=== PATIENT | female | born 1955 | race Caucasian/White ===

== ENCOUNTER 2016-05-14 23:32 | Emergency (ER) | payer OTHER ==
[~2016-05-14] VITALS: Ht 170.2 cm; Wt 82.6 kg
[2016-05-15] MEDS ORDERED: MORPHINE SULFATE 2 MG/1 ML DISP.SYRIN IV ONE (00:30)
[2016-05-15] MEDS ORDERED: ONDANSETRON 4 MG/2 ML VIAL IV ONE (00:30)
[2016-05-15 00:32] LABS: BASOPHILS # (AUTO) 0.1 K/uL (0.0-0.2); BASOPHILS % (AUTO) 0.8 % (0.0-2.0); EOSINOPHILS # (AUTO) 0.1 K/uL (0.0-0.7); EOSINOPHILS % (AUTO) 0.7 % (0.0-7.0); HEMATOCRIT 38.1 % (37.0-47.0); HEMOGLOBIN 11.8 g/dL (12.0-16.0); LYMPHOCYTES # (AUTO) 2.1 K/uL (0.8-4.8); LYMPHOCYTES % (AUTO) 22.4 % (20.5-51.5); MEAN CORPUSCULAR HEMOGLOBIN 27.1 uug (27.0-31.0); MEAN CORPUSCULAR HGB CONC 31 g/dL (32.0-37.0); MEAN CORPUSCULAR VOLUME 87.8 fL (81.0-99.0); MONOCYTES # (AUTO) 0.7 K/uL (0.1-1.30); MONOCYTES % (AUTO) 7.1 % (0.0-11.0); NEUTROPHILS # (AUTO) 6.6 K/uL (1.8-8.9); PLATELET COUNT (AUTO) 203 K/uL (150-450); RED BLOOD CELL COUNT(AUTO) 4.34 MIL/uL (4.20-5.40); RED CELL DISTRIBUTION WIDTH 12.6 % (11.5-14.5); WHITE BLOOD COUNT (AUTO) 9.6 K/uL (4.0-11.2)
[2016-05-15] MEDS ORDERED: ONDANSETRON 4 MG/2 ML VIAL ONE (00:35)
[2016-05-15] MEDS ORDERED: MORPHINE SULFATE 2 MG/1 ML DISP.SYRIN ONE (00:35)
[2016-05-15 00:52] LABS: ALBUMIN 3.9 g/dL (3.4-5.0); BILIRUBIN,DIRECT 0.1 mg/dL (0.0-0.2); BILIRUBIN,TOTAL 0.5 mg/dL (0.2-1.0); CALCIUM 9.3 mg/dL (8.5-10.1); CREATININE 0.9 mg/dL (0.6-1.3); TOTAL PROTEIN, SERUM 8.4 g/dL (6.4-8.2)
[2016-05-15 01:14] LABS: *BILIRUBIN,URIN NEGATIVE (NEGATIVE); *BLOOD, URINE 1+ (NEGATIVE); *COLOR,URINE YELLOW (YELLOW); *KETONES,URINE NEGATIVE (NEGATIVE); *PROTEIN,URINE 1+ (NEGATIVE); *UROBILINOGEN,URINE 0.2 E.U./dl (NORMAL); LEUKOCYTE ESTERASE ,URINE NEGATIVE (NEGATIVE); NITRITE, URINE NEGATIVE (NEGATIVE); PH,URINE 6.5 (5.0-8.0); UGLUCOSE NEGATIVE (NEGATIVE)
[2016-05-15 01:24] LABS: *CLARITY,URINE HAZY (CLEAR)
[2016-05-15 01:25] LABS: BACTERIA,URINE FEW /HPF (NONE SEEN); SQUAMOUS EPITHELIAL CELL,UR FEW /HPF (NONE SEEN); WBC,URINE 0-3 /HPF (0-3)
--- NOTE | 2016-05-15 02:44 | NUR ---
Patient discharged to home in stable conditon. Written and verbal after care instructions given. Patient verbalizes understanding of instructions.
== END 2016-05-15 02:49 | disposition home or self-care (01) ==
LOC: ER 23:32
DX: R10.12 Left upper quadrant pain (principal); D64.9 Anemia, unspecified; I10 Essential (primary) hypertension; R11.2 Nausea with vomiting, unspecified; Z90.710 Acquired absence of both cervix and uterus
CPT/HCPCS: 36415; 71010; 83690; 85025; A4663; J2270; J2405

== ENCOUNTER 2016-05-30 23:58 | Emergency (ER) | payer OTHER ==
[~2016-05-30] VITALS: Ht 172.7 cm; Wt 54.0 kg
[2016-05-31] MEDS ORDERED: BP MEDICATION PO (00:08)
[2016-05-31] MEDS ORDERED: CAPT25TA3 PO (00:08)
[2016-05-31] MEDS ORDERED: [UNRECOGNIZED DRUG - OTHER] PO (00:08)
[2016-05-31 01:04] LABS: BASOPHILS # (AUTO) 0.1 K/uL (0.0-0.2); EOSINOPHILS # (AUTO) 0.1 K/uL (0.0-0.7); HEMOGLOBIN 11.6 g/dL (12.0-16.0); LYMPHOCYTES # (AUTO) 1.9 K/uL (0.8-4.8); MEAN CORPUSCULAR HEMOGLOBIN 29.6 uug (27.0-31.0); WHITE BLOOD COUNT (AUTO) 6.9 K/uL (4.0-11.2)
[2016-05-31 01:05] LABS: BASOPHILS % (AUTO) 0.9 % (0.0-2.0); EOSINOPHILS % (AUTO) 1.3 % (0.0-7.0); HEMATOCRIT 34.9 % (37.0-47.0); MEAN CORPUSCULAR HGB CONC 33 g/dL (32.0-37.0); MEAN CORPUSCULAR VOLUME 89.5 fL (81.0-99.0); MONOCYTES # (AUTO) 0.6 K/uL (0.1-1.30); NEUTROPHILS # (AUTO) 4.2 K/uL (1.8-8.9); NEUTROPHILS % (AUTO) 60.8 % (38.5-71.5); PLATELET COUNT (AUTO) 192 K/uL (150-450); RED CELL DISTRIBUTION WIDTH 13.3 % (11.5-14.5)
[2016-05-31 01:07] LABS: CALCIUM 9.2 mg/dL (8.5-10.1); POTASSIUM 3.8 mmol/L (3.5-5.1)
[2016-05-31 01:16] LABS: ALBUMIN 3.9 g/dL (3.4-5.0); BILIRUBIN,DIRECT 0.1 mg/dL (0.0-0.2); BILIRUBIN,TOTAL 0.5 mg/dL (0.2-1.0); TOTAL PROTEIN, SERUM 7.8 g/dL (6.4-8.2)
[2016-05-31 01:19] LABS: BAND % (MANUAL) 2 % (0-10); EOSINOPHILS % (MANUAL) 1 % (0-8); LYMPHOCYTES % (MANUAL) 30 % (20-40); MONOCYTES % (MANUAL) 8 % (2-10); NEUTROPHILS % (MANUAL) 59 % (42-75)
[2016-05-31 01:20] LABS: PLATELET ESTIMATE ADEQUATE
--- NOTE | 2016-05-31 05:05 | NUR ---
Patient discharged to home in stable conditon. Written and verbal after care instructions given. Patient verbalizes understanding of instructions.
[2016-05-31 05:07] VITALS: BP 132/82
== END 2016-05-31 05:05 | disposition home or self-care (01) ==
LOC: ER 23:59
DX: R00.2 Palpitations (principal); Z88.1 Allergy status to other antibiotic agents; Z88.8 Allergy status to other drugs, medicaments and biological substances
CPT/HCPCS: 36415; 71010; 80048; 80076; 83880; 84439; 84443; 84479; 84484 ×2; 84550; 85025; 85379; 85730; 93005; 99285; A4663 ×2; 70030-TC

== ENCOUNTER 2017-02-16 15:30 | Emergency (ER) | payer OTHER ==
[~2017-02-16] VITALS: Ht 175.3 cm; Wt 84.8 kg
[~2017-02-16 15:30] MED LIST: BP MEDICATION PO; CAPT25TA3 PO; [UNRECOGNIZED DRUG - OTHER] PO
[2017-02-16] MEDS ORDERED: ATEN25TA PO (15:53)
[2017-02-16 16:40] LABS: BASOPHILS % (AUTO) 0.5 % (0.0-2.0); EOSINOPHILS # (AUTO) 0.1 K/uL (0.0-0.7); EOSINOPHILS % (AUTO) 0.9 % (0.0-7.0); HEMATOCRIT 34.8 % (31.2-41.9); HEMOGLOBIN 11.2 g/dL (10.9-14.3); LYMPHOCYTES % (AUTO) 28.5 % (20.5-51.5); MEAN CORPUSCULAR HEMOGLOBIN 29.1 uug (24.7-32.8); MEAN CORPUSCULAR HGB CONC 32 g/dL (32.3-35.6); MEAN CORPUSCULAR VOLUME 90.2 fL (75.5-95.3); MONOCYTES # (AUTO) 0.5 K/uL (2.0-10.0); MONOCYTES % (AUTO) 7.5 % (0.0-11.0); NEUTROPHILS # (AUTO) 4.4 K/uL (1.8-8.9); NEUTROPHILS % (AUTO) 62.6 % (38.5-71.5); PLATELET COUNT (AUTO) 193 K/uL (179-408); RED BLOOD CELL COUNT(AUTO) 3.86 MIL/uL (3.63-4.92); WHITE BLOOD COUNT (AUTO) 7.1 K/uL (3.8-11.8)
[2017-02-16 16:46] LABS: POTASSIUM 4.9 mmol/L (3.5-5.1)
[2017-02-16 17:16] VITALS: BP 125/73
--- NOTE | 2017-02-16 17:16 | NUR ---
Patient discharged to home in stable conditon. Written and verbal after care instructions given. Patient verbalizes understanding of instructions. Stressed follow up with pmd or return to ER for worsening s/s.
== END 2017-02-16 17:17 | disposition home or self-care (01) ==
LOC: ER 15:31
DX: R00.2 Palpitations (principal); R07.89 Other chest pain; I10 Essential (primary) hypertension; Z88.0 Allergy status to penicillin
CPT/HCPCS: 36415; 70030-TC; 71010; 85025; 85730; 93005; A4663

== ENCOUNTER 2017-03-01 03:51 | Emergency (ER) | END 2017-03-01 04:57 | disposition home or self-care (01) | DX: B34.9 Viral infection, unspecified (principal); I10 Essential (primary) hypertension; Z88.0 Allergy status to penicillin ==

== ENCOUNTER 2017-04-21 23:37 | Emergency (ER) | payer OTHER ==
[~2017-04-21 23:37] MED LIST changes: +ATEN25TA PO; -BP MEDICATION PO; -[UNRECOGNIZED DRUG - OTHER] PO
--- NOTE | 2017-04-22 00:58 | NUR ---
PATIENT WAS CALLED SEVERAL TIMES TO BE TRIAGED.PATIENT WAS NOT PRESENT. PATIENT WAS NOT SEEN BY ER MD OR TRIAGED
== END 2017-04-22 00:59 | disposition left against medical advice (07) ==
LOC: ER 23:41
DX: Z53.21 Procedure and treatment not carried out due to patient leaving prior to being seen by health care provider (principal)

== ENCOUNTER 2017-06-10 00:09 | Emergency (ER) | payer OTHER ==
[~2017-06-10] VITALS: Ht 170.2 cm; Wt 77.1 kg
--- NOTE | 2017-06-10 01:01 | NUR ---
Patient in bed, no acute distress noted. VSS
--- NOTE | 2017-06-10 01:07 | NUR ---
ER MD at bedside for patient evaluation
--- NOTE | 2017-06-10 01:13 | NUR ---
RT called for patient at this time.
[2017-06-10] MEDS ORDERED: ALBUTEROL SULFATE 2.5 MG/3 ML NEBU NEB ONE (01:15)
[2017-06-10] MEDS ORDERED: methylPREDNISolone ACETATE 40 MG VIAL IM ONE (01:15)
[2017-06-10] MEDS ORDERED: IPRATROPIUM BROMIDE 0.5 MG/2.5 ML NEBU NEB ONE (01:15)
[2017-06-10] MEDS ORDERED: IPRATROPIUM BROMIDE 0.5 MG/2.5 ML NEBU ONE (01:21)
[2017-06-10] MEDS ORDERED: ALBUTEROL SULFATE 2.5 MG/3 ML NEBU ONE (01:21)
[2017-06-10] MEDS ORDERED: methylPREDNISolone SOD SUCC 40 MG/ML VIAL ONE (01:23)
--- NOTE | 2017-06-10 01:29 | NUR ---
RT at bedside, breathing Tx ongoing. Well tolerated by the patient at this time.
--- NOTE | 2017-06-10 02:02 | NUR ---
xRAY AT BEDSIDE
--- NOTE | 2017-06-10 02:44 | NUR ---
Patient discharged to home in stable conditon. Written and verbal after care instructions given. Patient verbalizes understanding of instructions. Ambulated from ER with stable gait. All belonging with patient.
[2017-06-10 02:45] VITALS: BP 136/89
== END 2017-06-10 02:46 | disposition home or self-care (01) ==
LOC: ER 00:12
DX: J45.909 Unspecified asthma, uncomplicated (principal); I10 Essential (primary) hypertension; Z88.1 Allergy status to other antibiotic agents; Z88.8 Allergy status to other drugs, medicaments and biological substances; Z79.899 Other long term (current) drug therapy
CPT/HCPCS: 71045; 93005; A4663; J2920; J3590

== ENCOUNTER 2017-06-12 03:42 | Emergency (ER) | payer OTHER ==
[~2017-06-12] VITALS: Ht 170.2 cm; Wt 77.1 kg
--- NOTE | 2017-06-12 04:00 | NUR ---
Dr. Samano at bedside.
[2017-06-12] MEDS ORDERED: methylPREDNISolone SOD SUCC 125 MG/2 ML VIAL IV ONE (04:15)
[2017-06-12] MEDS ORDERED: IPRATROPIUM BROMIDE 0.5 MG/2.5 ML NEBU NEB ONE (04:15)
[2017-06-12] MEDS ORDERED: ALBUTEROL SULFATE 2.5 MG/3 ML NEBU NEB ONE (04:15)
[2017-06-12] MEDS ORDERED: methylPREDNISolone SOD SUCC 125 MG/2 ML VIAL ONE (04:30)
[2017-06-12] MEDS ORDERED: LORA0.5T PO (04:36)
[2017-06-12] MEDS ORDERED: ATEN50TA PO (04:36)
[2017-06-12] MEDS ORDERED: LEVO750T21 PO (04:36)
[2017-06-12] MEDS ORDERED: ALBUTEROL SULFATE 2.5 MG/ 0.5 ML NEBU ONE (04:38)
[2017-06-12] MEDS ORDERED: IPRATROPIUM BROMIDE 0.5 MG/2.5 ML NEBU ONE (04:39)
--- NOTE | 2017-06-12 04:40 | NUR ---
Xray at bedside.
[2017-06-12 05:08] LABS: BASOPHILS % (AUTO) 0.5 % (0.0-2.0); EOSINOPHILS % (AUTO) 0.1 % (0.0-7.0); HEMATOCRIT 35.5 % (31.2-41.9); HEMOGLOBIN 11.4 g/dL (10.9-14.3); LYMPHOCYTES % (AUTO) 25.6 % (20.5-51.5); MEAN CORPUSCULAR HEMOGLOBIN 29.1 uug (24.7-32.8); MEAN CORPUSCULAR HGB CONC 32 g/dL (32.3-35.6); MEAN CORPUSCULAR VOLUME 90.6 fL (75.5-95.3); MONOCYTES # (AUTO) 0.8 K/uL (2.0-10.0); NEUTROPHILS # (AUTO) 4.8 K/uL (1.8-8.9); NEUTROPHILS % (AUTO) 62.8 % (38.5-71.5); PLATELET COUNT (AUTO) 103 K/uL (179-408); RED BLOOD CELL COUNT(AUTO) 3.92 MIL/uL (3.63-4.92); WHITE BLOOD COUNT (AUTO) 7.7 K/uL (3.8-11.8)
[2017-06-12 05:29] LABS: BILIRUBIN,DIRECT 0.1 mg/dL (0.0-0.2); BILIRUBIN,TOTAL 0.6 mg/dL (0.2-1.0); TOTAL PROTEIN, SERUM 7.6 g/dL (6.4-8.2)
--- NOTE | 2017-06-12 06:12 | NUR ---
Patient discharged to home in stable conditon. Written and verbal after care instructions given. peripheral IV DCed, catheter intact. Patient verbalizes understanding of instructions.
[2017-06-12 06:32] VITALS: BP 142/89
== END 2017-06-12 06:34 | disposition home or self-care (01) ==
LOC: ER 03:42
DX: J40 Bronchitis, not specified as acute or chronic (principal); I10 Essential (primary) hypertension; J45.909 Unspecified asthma, uncomplicated; Z88.1 Allergy status to other antibiotic agents; Z88.8 Allergy status to other drugs, medicaments and biological substances; Z79.2 Long term (current) use of antibiotics; Z79.899 Other long term (current) drug therapy
CPT/HCPCS: 36415; 70030-TC; 71045; 85025; A4663; J2930; J3590

== ENCOUNTER 2017-12-27 22:23 | Emergency (ER) | payer OTHER ==
[~2017-12-27] VITALS: Ht 170.2 cm; Wt 86.2 kg
[~2017-12-27 22:23] MED LIST changes: -ATEN25TA PO; +ATEN50TA PO; +LEVO750T21 PO; +LORA0.5T PO
--- NOTE | 2017-12-27 22:35 | NUR ---
Pt ambulates to ER with c/o chest pain that started 1 hr ago. 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 Pt took her own Nitro 1 tab and it has provided pain relief from 11/07 to 0. Per pt & daughter, they called 911 however refused to be transported by the ambulance. Here for blood tests. Pt denies chest pain at this time. VSS. NSR on monitor. SA02 100% room air.
--- NOTE | 2017-12-27 22:56 | NUR ---
Saline lock in place left AC 20 gauge. Blood samples sent to lab.
--- NOTE | 2017-12-27 23:02 | NUR ---
Xray at bedside.
[2017-12-27 23:03] LABS: BASOPHILS # (AUTO) 0.1 K/uL (0.0-8.0); BASOPHILS % (AUTO) 1.1 % (0.0-2.0); EOSINOPHILS # (AUTO) 0.1 K/uL (0.0-0.7); EOSINOPHILS % (AUTO) 1.7 % (0.0-7.0); HEMATOCRIT 32.6 % (31.2-41.9); HEMOGLOBIN 10.9 g/dL (10.9-14.3); LYMPHOCYTES # (AUTO) 2.2 K/uL (20.0-40.0); LYMPHOCYTES % (AUTO) 40.2 % (20.5-51.5); MEAN CORPUSCULAR HGB CONC 33 g/dL (32.3-35.6); MEAN CORPUSCULAR VOLUME 89.8 fL (75.5-95.3); MONOCYTES # (AUTO) 0.5 K/uL (2.0-10.0); MONOCYTES % (AUTO) 9.9 % (0.0-11.0); NEUTROPHILS # (AUTO) 2.6 K/uL (1.8-8.9); NEUTROPHILS % (AUTO) 47.1 % (38.5-71.5); PLATELET COUNT (AUTO) 187 K/uL (179-408); RED BLOOD CELL COUNT(AUTO) 3.63 MIL/uL (3.63-4.92); WHITE BLOOD COUNT (AUTO) 5.5 K/uL (3.8-11.8)
[2017-12-27 23:08] LABS: POTASSIUM 3.9 mmol/L (3.5-5.1)
[2017-12-27 23:19] LABS: BILIRUBIN,DIRECT 0.1 mg/dL (0.0-0.2); BILIRUBIN,TOTAL 0.4 mg/dL (0.2-1.0); TOTAL PROTEIN, SERUM 7.6 g/dL (6.4-8.2)
[2017-12-27] MEDS ORDERED: IV NORMAL SALINE 250 ML IV ONE (23:54)
[2017-12-27] MEDS ORDERED: IOHEXOL 350 100 ML INFUS..BTL ONE (23:54)
[2017-12-27] MEDS ORDERED: SWABABLE VALVE TRANSFER SET EA MC ONE (23:54)
--- NOTE | 2017-12-28 00:38 | NUR ---
Pt back from radiology department. Pt placed back on monitor. VSS. Pending result of CTA.
[2017-12-28] MEDS ORDERED: IV NORMAL SALINE 1000 ML BAG IV ONE (01:00)
--- NOTE | 2017-12-28 02:43 | NUR ---
IV removed. Catheter intact and site benign. Pressure and 4x4 gauze applied to site. No bleeding noted.
--- NOTE | 2017-12-28 02:47 | NUR ---
Patient does not wish to proceed with medical care recommended by Dr. Payan. Patient given information related to possible complications, up to and including , which could occur as a result of leaving the hospital at this time. Patient verbalizes understanding of risks involved due to leaving against medical advice. Patient has signed AMA form. Pt left ER in steady gait accompanied by daughter. All belongings with pt. VSS.
[2017-12-28 02:51] VITALS: BP 147/79
== END 2017-12-28 02:53 | disposition left against medical advice (07) ==
LOC: ER 22:23
DX: R07.89 Other chest pain (principal); I10 Essential (primary) hypertension; Z88.1 Allergy status to other antibiotic agents; Z88.8 Allergy status to other drugs, medicaments and biological substances
CPT/HCPCS: 36415 ×2; 71045; 71275; 80048; 80076; 83880; 84484 ×2; 85025; 85730; 93005 ×2; 99285; Q9967; 70030-TC; A4663; J7030; J7050

== ENCOUNTER 2018-03-01 16:29 | Emergency (ER) | payer OTHER ==
[~2018-03-01] VITALS: Ht 175.3 cm; Wt 86.2 kg
--- NOTE | 2018-03-01 17:21 | NUR ---
PT IS IN ROOM #1A. DR ROWLAND EVALUATED THE PT.
[2018-03-01 17:42] LABS: *MONOTEST NEGATIVE (NEGATIVE)
[2018-03-01] MEDS ORDERED: DEXAMETHASONE SOD PHOSPHATE 4 MG INJ ONE (17:56)
[2018-03-01] MEDS ORDERED: DEXAMETHASONE SOD PHOSPHATE 4 MG INJ IM ONE (18:00)
--- NOTE | 2018-03-01 18:10 | NUR ---
PT WAS D/C TO HOME. D/C INSTRUCTIONS GIVEN TO THE PT.
[2018-03-01 18:12] VITALS: BP 131/76
== END 2018-03-01 18:14 | disposition home or self-care (01) ==
LOC: ER 16:29
DX: J03.90 Acute tonsillitis, unspecified (principal); I10 Essential (primary) hypertension; Z88.1 Allergy status to other antibiotic agents; Z88.8 Allergy status to other drugs, medicaments and biological substances; Z79.899 Other long term (current) drug therapy; Z79.2 Long term (current) use of antibiotics
CPT/HCPCS: 36415; 86308; 86403; 87070; 96372; 99283; J1100; A4663

== ENCOUNTER 2022-10-10 21:05 | Emergency (ER) | payer OTHER ==
[~2022-10-10] VITALS: Ht 165.1 cm; Wt 79.4 kg
[2022-10-10] MEDS ORDERED: IV NORMAL SALINE 500 ML BAG IV ONE (21:45)
[2022-10-10 21:47] LABS: BASOPHILS % (AUTO) 0.1 % (0.0-2.0); EOSINOPHILS # (AUTO) 0.1 K/uL (0.0-0.7); EOSINOPHILS % (AUTO) 0.8 % (0.0-7.0); HEMOGLOBIN 12.1 g/dL (10.9-14.3); LYMPHOCYTES # (AUTO) 1.7 K/uL (0.8-4.8); LYMPHOCYTES % (AUTO) 24.1 % (20.5-51.5); MEAN CORPUSCULAR HEMOGLOBIN 28.8 uug (24.7-32.8); MEAN CORPUSCULAR HGB CONC 31 g/dL (32.3-35.6); MEAN CORPUSCULAR VOLUME 93.1 fL (75.5-95.3); MONOCYTES # (AUTO) 0.6 K/uL (0.1-1.30); MONOCYTES % (AUTO) 7.9 % (0.0-11.0); NEUTROPHILS # (AUTO) 4.7 K/uL (1.8-8.9); NEUTROPHILS % (AUTO) 67.1 % (38.5-71.5); PLATELET COUNT (AUTO) 116 K/uL (179-408); RED BLOOD CELL COUNT(AUTO) 4.19 MIL/uL (3.63-4.92); RED CELL DISTRIBUTION WIDTH 14.8 % (12.3-17.7)
[2022-10-10 21:58] LABS: CALCIUM 9.3 mg/dL (8.5-10.1); CARBON DIOXIDE 27 mmol/L (21-32); CHLORIDE 103 mmol/L (98-107); DIFFERENTIAL COMMENT 1; GLUCOSE 164 mg/dL (74-106); POTASSIUM 3.8 mmol/L (3.5-5.1); SODIUM SERUM 141 mmol/L (136-145); UREA NITROGEN, BLOOD 16 mg/dL (7-18)
[2022-10-10] MEDS ORDERED: BENZ-13 PO (23:33)
[2022-10-11 01:23] VITALS: BP 141/70; TEMP 98; O2SAT 98
== END 2022-10-11 00:45 | disposition home or self-care (01) ==
LOC: ER 21:08
DX: R05.9 Cough, unspecified (principal); R06.02 Shortness of breath; J40 Bronchitis, not specified as acute or chronic; I10 Essential (primary) hypertension; Z88.1 Allergy status to other antibiotic agents; Z88.8 Allergy status to other drugs, medicaments and biological substances; Z79.2 Long term (current) use of antibiotics; Z79.899 Other long term (current) drug therapy; Z20.822 Contact with and (suspected) exposure to COVID-19
CPT/HCPCS: 99285; 96360; 71045; 87426; 80048; 85025; 84484 ×2; 36415; 93005; J7040; A4663